=== PATIENT | female | born 1950 | race Caucasian/White ===

== ENCOUNTER 2018-09-17 19:15 | Emergency (ER) | payer OTHER ==
[~2018-09-17] VITALS: Ht 160 cm; Wt 72.6 kg
[2018-09-17 19:35] VITALS: Ht 160 cm; Wt 72.6 kg
[2018-09-17 20:54] VITALS: BP 130/84
== END 2018-09-17 20:54 | disposition home or self-care (01) ==
LOC: ED 19:15
DX: S32.049A Unspecified fracture of fourth lumbar vertebra, initial encounter for closed fracture (principal); S42.91XA Fracture of right shoulder girdle, part unspecified, initial encounter for closed fracture; R10.9 Unspecified abdominal pain; I10 Essential (primary) hypertension; X58.XXXA Exposure to other specified factors, initial encounter; Y93.89 Activity, other specified; Y92.89 Other specified places as the place of occurrence of the external cause; Y99.8 Other external cause status
CPT/HCPCS: J2270; Q0162